=== PATIENT | female | born 1995 | race Two or more races ===

== ENCOUNTER 2024-02-13 11:44 | Inpatient (IN) | payer MEDICAID, OTHER ==
[~2024-02-13] VITALS: Ht 165.1 cm; Wt 66.9 kg
[2024-02-13] MEDS: NALOXONE HCL 1 MG/ML 2 ML SYRINGE IVP ONE ×2 (12:22→14:26)
[2024-02-13] MEDS: SODIUM CHLORIDE 0.9% 1,000 ML IV ONE (12:22)
[2024-02-13 12:26] LABS: APPEARANCE,URINE CLEAR (CLEAR); BILIRUBIN,URINE NEGATIVE (NEGATIVE); COLOR,URINE YELLOW (YELLOW); GLUCOSE, URINE (UA) NEGATIVE (NEGATIVE); KETONES,URINE NEGATIVE (NEGATIVE); LEUKOCYTE ESTERASE ,URINE NEGATIVE (NEGATIVE); NITRATE,URINE NEGATIVE (NEGATIVE); OCCULT BLOOD,URINE NEGATIVE (NEGATIVE); PH,URINE 5.5 (5.0-8.0); PH,URINE DRUG SCREEN 5.5 (5.0-8.0); PROTEIN,URINE TRACE mg/dL (NEGATIVE); SPECIFIC GRAVITIY, URINE 1.031 (1.003-1.030); UROBILINOGEN,URINE <=1.0 mg/dL (<=1.0)
[2024-02-13 12:32] LABS: ALCOHOL, URINE DRUG SCREEN NEGATIVE (NEGATIVE); AMPHET/METH SCREEN,URINE NEGATIVE (NEGATIVE); BARBITURATE SCREEN, URINE NEGATIVE (NEGATIVE); BENZODIAZEPINES SCREEN,URINE NEGATIVE (NEGATIVE); CANNABINOID SCREEN,URINE NEGATIVE (NEGATIVE); COCAINE SCREEN,URINE NEGATIVE (NEGATIVE); METHADONE SCREEN, URINE NEGATIVE (NEGATIVE); OPIATE SCREEN,URINE NEGATIVE (NEGATIVE); PHENCYCLIDINE SCREEN,URINE NEGATIVE (NEGATIVE)
[2024-02-13 12:32] LABS: BASOPHILS % (AUTO) 0.2 % (0.0-2.0); EOSINOPHILS % (AUTO) 1.6 % (1.0-6.0); HEMATOCRIT 39.2 % (36-46); HEMOGLOBIN 13.2 g/dL (12.0-16.0); LYMPHOCYTES # (AUTO) 1.1 K/uL (1.0-4.8); LYMPHOCYTES % (AUTO) 25.3 % (22.0-44.0); MEAN CORPUSCULAR HEMOGLOBIN 29.4 pg (26.0-34.0); MEAN CORPUSCULAR HGB CONC 33.7 G/dL (31.0-37.0); MEAN CORPUSCULAR VOLUME 87 fL (80-100); MONOCYTES # (AUTO) 0.4 K/uL (0.1-1.0); MONOCYTES % (AUTO) 8.9 % (2.0-9.0); NEUTROPHILS # (AUTO) 2.7 K/uL (1.8-7.7); PLATELET COUNT (AUTO) 284 K/uL (150-450); WHITE BLOOD COUNT (AUTO) 4.3 K/uL (4.5-11.0)
[2024-02-13 12:39] LABS: ANION GAP 7 mmol/L (8-16); CALCIUM, TOTAL 8.8 mg/dL (8.8-10.5); CARBON DIOXIDE 30 mmol/L (22-29); CHLORIDE 106 mmol/L (98-107); CREATININE 0.79 mg/dL (0.60-1.30); GLOMERULAR FILTR. RATE CALC > 60 mL/min (>60); GLUCOSE,RANDOM 85 mg/dL (70-110); POTASSIUM 3.4 mmol/L (3.5-5.1); SODIUM SERUM 143 mmol/L (136-145); UREA NITROGEN, BLOOD 9 mg/dL (7-18)
[2024-02-13 12:42] LABS: ALCOHOL, BLOOD (SERUM) < 3 mg/dL (0-10)
[2024-02-13 12:45] LABS: ALANINE AMINOTRANSFERASE 20 U/L (12-78); ALBUMIN 3.5 g/dL (3.4-5.0); ALKALINE PHOSPHATASE 89 U/L (46-116); ASPARTATE AMINOTRANSFERASE 19 U/L (15-37); BILIRUBIN,TOTAL 0.3 mg/dL (0.1-1.0); TOTAL PROTEIN, SERUM 7.5 g/dL (6.4-8.2)
[2024-02-13 13:21] LABS: BACTERIA,URINE Moderate /HPF (None Seen); CALCIUM OXALATE CRYSTALS,UR Many /LPF (None Seen); RBC,URINE 0-2 /HPF (0-2); SQUAMOUS EPITHELIAL CELL,UR Moderate /LPF (None Seen); WBC,URINE 0-2 /HPF (0-5)
[2024-02-13 16:32] LABS: PH,URINE DRUG SCREEN 5.5 (5.0-8.0)
[2024-02-13 16:39] LABS: AMPHET/METH SCREEN,URINE NEGATIVE (NEGATIVE); BARBITURATE SCREEN, URINE NEGATIVE (NEGATIVE); BENZODIAZEPINES SCREEN,URINE NEGATIVE (NEGATIVE); CANNABINOID SCREEN,URINE NEGATIVE (NEGATIVE); COCAINE SCREEN,URINE NEGATIVE (NEGATIVE); METHADONE SCREEN, URINE NEGATIVE (NEGATIVE); OPIATE SCREEN,URINE NEGATIVE (NEGATIVE); PHENCYCLIDINE SCREEN,URINE NEGATIVE (NEGATIVE)
[2024-02-13 16:49] LABS: ALCOHOL, URINE DRUG SCREEN NEGATIVE (NEGATIVE)
[2024-02-13] MEDS ORDERED: ZOLPIDEM TARTRATE 10 MG TABLET PO PRN (19:00)
[2024-02-13] MEDS ORDERED: HALOPERIDOL 5 MG TABLET PO PRN (19:00)
[2024-02-13] MEDS ORDERED: LORazepam 2 MG TABLET PO PRN (19:00)
[2024-02-13 22:50] LABS: COVID AG,FIA SOURCE NASAL SWAB
[2024-02-13 23:15] LABS: SARS-COV2 (COVID) ANTIGEN,FIA Negative (Negative)
[2024-02-14] MEDS ORDERED: BENZOCAINE/MENTHOL LOZENGE PO PRN (06:15)
[2024-02-14] MEDS ORDERED: PETROLATUM,WHITE 28 GM JELLY TP PRN (06:15)
[2024-02-14] MEDS ORDERED: MAGNESIUM HYDROXIDE SUSPENSION 30 ML UDCUP PO PRN (06:15)
[2024-02-14] MEDS ORDERED: BACITRACIN 28 GM OINTMENT TP PRN (06:15)
[2024-02-14] MEDS ORDERED: ONDANSETRON HCL 4 MG TABLET PO PRN (06:15)
[2024-02-14] MEDS ORDERED: OMEPRAZOLE 20 MG CAPSULE PO PRN (06:15)
[2024-02-14] MEDS ORDERED: ALBUTEROL SULFATE HFA 90 MCG/PUFF 8 GM INHALER IH PRN (06:15)
[2024-02-14] MEDS ORDERED: IBUPROFEN 600 MG TABLET PO PRN (06:15)
[2024-02-14] MEDS ORDERED: MAG HYDROX/ALUMINUM HYD/SIMETH ES 30 ML SUSPENSION UDCUP PO PRN (06:15)
[2024-02-14] MEDS ORDERED: CloNIDine HCL 0.1 MG TABLET PO PRN (06:15)
[2024-02-14] MEDS ORDERED: DOCUSATE SODIUM 100 MG CAPSULE PO PRN (06:15)
[2024-02-14 08:10] VITALS: BP 122/66; PULSE 76; RESP 16; TEMP 97.9; O2SAT 98
[2024-02-14] MEDS: OLANZapine 5 MG RAPDIS TABLET PO SCH (16:26)
[2024-02-14] MEDS: SULFAMETHOX/TRIMETH DS 800-160 MG/TABLET PO SCH (16:26)
[2024-02-14 18:23] VITALS: BP 98/56; PULSE 73; RESP 18; TEMP 97.7
[2024-02-15 15:05] VITALS: BP 137/77; PULSE 92; RESP 16; TEMP 98.6; O2SAT 99
[2024-02-15 20:37] VITALS: BP 125/83; PULSE 109; RESP 16; TEMP 98.8; O2SAT 99
[2024-02-16 12:30] VITALS: BP 122/70; PULSE 106; RESP 18; TEMP 97.9; O2SAT 95
[2024-02-16 21:58] VITALS: BP 120/74; PULSE 107; RESP 18; TEMP 97.2; O2SAT 98
[2024-02-17 09:12] VITALS: BP 128/72; PULSE 107; RESP 16; TEMP 96; O2SAT 99
[2024-02-17] MEDS: LOPERAMIDE HCL 2 MG CAPSULE PO PRN (15:24)
[2024-02-17 20:53] VITALS: BP 115/65; PULSE 96; RESP 18; TEMP 98; O2SAT 99
[2024-02-18 08:53] VITALS: BP 124/71; PULSE 99; RESP 17; TEMP 97.1; O2SAT 99
[2024-02-18 20:00] VITALS: BP 100/59; PULSE 98; RESP 17; TEMP 97.9; O2SAT 97
[2024-02-19 09:37] VITALS: BP 125/86; PULSE 111; RESP 16; TEMP 97.8; O2SAT 95
[2024-02-19 20:44] VITALS: BP 118/62; PULSE 93; RESP 18; TEMP 97.9; O2SAT 98
[2024-02-20 08:50] VITALS: BP 123/83; PULSE 92; RESP 17; TEMP 98; O2SAT 96
[2024-02-20 19:26] VITALS: RESP 18
[2024-02-20] MEDS: ACETAMINOPHEN 325 MG TABLET PO PRN (19:26)
[2024-02-20 20:21] VITALS: BP 121/74; PULSE 90; RESP 18; TEMP 98.3; O2SAT 97
[2024-02-20 20:26] VITALS: RESP 16
[2024-02-21 08:42] VITALS: BP 127/86; PULSE 111; RESP 17; TEMP 96.1; O2SAT 96
[2024-02-21 10:04] VITALS: BP 100/60; PULSE 92; RESP 17; TEMP 97.4; O2SAT 97
[2024-02-21 20:38] VITALS: BP 118/75; PULSE 90; RESP 19; TEMP 98; O2SAT 98
[2024-02-22 08:31] VITALS: BP 112/55; PULSE 84; RESP 17; TEMP 97.5; O2SAT 99
[2024-02-22 20:39] VITALS: BP 120/89; PULSE 102; RESP 18; TEMP 97.7; O2SAT 98
[2024-02-23 09:19] VITALS: BP 127/79; PULSE 99; RESP 18; TEMP 97.8; O2SAT 98
[2024-02-23 20:42] VITALS: BP 113/72; PULSE 101; RESP 16; TEMP 98.3; O2SAT 98
[2024-02-24 09:20] VITALS: BP 129/76; PULSE 99; RESP 18; TEMP 97.5; O2SAT 97
[2024-02-24 18:21] VITALS: RESP 18; O2SAT 97
[2024-02-24 19:21] VITALS: RESP 17; O2SAT 97
[2024-02-24 20:35] VITALS: BP 129/79; PULSE 80; RESP 18; TEMP 97.9; O2SAT 99
[2024-02-25 09:02] VITALS: BP 139/86; PULSE 115; RESP 16; TEMP 97.7; O2SAT 95
[2024-02-25 20:16] VITALS: BP 131/85; PULSE 95; RESP 18; TEMP 97.9
[2024-02-26 09:06] VITALS: BP 129/86; PULSE 112; RESP 18; TEMP 97.8; O2SAT 99
[2024-02-26] MEDS ORDERED: OLAN5TAB52 PO (11:40)
== END 2024-02-26 14:03 | disposition home or self-care (01) | DRG 750 ==
LOC: EMS 11:44 → EDBD 11:44 → B3A 02-14 02:37 → B2S 02-14 18:39
PROVIDERS: ADMIT Psychiatry & Neurology Child & Adolescent Psychiatry; ATTEND Psychiatry & Neurology Child & Adolescent Psychiatry
PROC: GZ58ZZZ Individual Psychotherapy, Cognitive-Behavioral (ICD-10-PCS; principal; 2024-02-14)
DX: F20.9 Schizophrenia, unspecified (principal); E87.6 Hypokalemia; F41.9 Anxiety disorder, unspecified; Z20.822 Contact with and (suspected) exposure to COVID-19; G47.00 Insomnia, unspecified; K59.00 Constipation, unspecified; N39.0 Urinary tract infection, site not specified; Z59.00 Homelessness unspecified
CPT/HCPCS: 70450; 71045; 80053; 80307; 81001; 84132; 84703; 85025; 87086; 87186; 99285; G0480; J2310; J7030; 36415-L1; 36415-TC

== ENCOUNTER → 2024-04-07 | Emergency (ER) | payer SELFPAY ==
[~2024-04-07] VITALS: Ht 167.6 cm; Wt 72.0 kg
[~2024-04-07] MED LIST: OLAN5TAB52 PO
[2024-04-07 19:34] VITALS: BP 110/60; PULSE 72; RESP 16; TEMP 98.9; O2SAT 100
== END | disposition still patient (30) ==
LOC: EMS 19:07
DX: R11.10 Vomiting, unspecified (principal); F19.10 Other psychoactive substance abuse, uncomplicated; Z59.00 Homelessness unspecified
CPT/HCPCS: 99283; Z7502